=== PATIENT | male | born 1980 ===

== ENCOUNTER 2017-04-07 05:31 | Emergency (ER) | payer OTHER ==
[2017-04-07 05:33] VITALS: BMI 26.5
[2017-04-07 05:48] VITALS: BP 138/88; PULSE 89; RESP 16; TEMP 98.7; O2SAT 99
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
--- NOTE | 2017-04-07 06:50 | CT ---
EXAM: CT Head Without Intravenous Contrast EXAM DATE/TIME: 04/07/2017 5:53 AM CLINICAL HISTORY: 36 years old, male; Injury or trauma; Fall; Additional info: Head injury TECHNIQUE: Axial computed tomography images of the head/brain without intravenous contrast. All CT scans at this facility use one or more dose reduction techniques, viz.: automated exposure control; ma/kV adjustment per patient size (including targeted exams where dose is matched to indication; i.e. head); or iterative reconstruction technique. Coronal and sagittal reformatted images were created and reviewed. COMPARISON: No relevant prior studies available. FINDINGS: Brain: Mild cerebellar and cerebral atrophy. No hemorrhage. No significant white matter disease. No edema. Ventricles: Unremarkable. No ventriculomegaly. Bones/joints: Unremarkable. No acute fracture. Soft tissues: Unremarkable. Sinuses: Minimal mucosal thickening of ethmoid sinus. Mastoid air cells: Unremarkable as visualized. No mastoid effusion. Orbits: Right scleral banding. IMPRESSION: No acute cerebral hemorrhage or edema.
--- NOTE | 2017-04-07 06:55 | CT ---
EXAM: CT Maxillofacial Without Intravenous Contrast EXAM DATE/TIME: 04/07/2017 5:53 AM CLINICAL HISTORY: 36 years old, male; Injury or trauma; Fall; Initial encounter; Blunt trauma (contusions or hematomas); Nose; Additional info: Facial trauma TECHNIQUE: Axial computed tomography images of the face without intravenous contrast. All CT scans at this facility use one or more dose reduction techniques, viz.: automated exposure control; ma/kV adjustment per patient size (including targeted exams where dose is matched to indication; i.e. head); or iterative reconstruction technique. Coronal and sagittal reformatted images were created and reviewed. COMPARISON: No relevant prior studies available. FINDINGS: Bones/joints: Nondisplaced comminuted fractures left nasal bone. Nondisplaced right anterior nasal bone fracture. Fracture inferior nasal spine. Soft tissues: Soft tissue swelling left jaw. Orbits: Right scleral banding. Sinuses: Mucosal thickening right greater than left maxillary sinuses. Bilateral sinonasal antral windows. Minimal mucosal thickening of ethmoid sinus. No air-fluid levels. IMPRESSION: Fractures nasal bones and inferior nasal spine.
== END 2017-04-07 07:10 | disposition home or self-care (01) ==
LOC: H.ER 05:31
DX: S02.2XXA Fracture of nasal bones, initial encounter for closed fracture (principal); S06.9X0A Unspecified intracranial injury without loss of consciousness, initial encounter; Y04.2XXA Assault by strike against or bumped into by another person, initial encounter

== ENCOUNTER 2018-02-25 23:50 | Emergency (ER) | payer OTHER, SELFPAY ==
[2018-02-25 23:50] VITALS: BMI 26.5
[2018-02-25 23:56] VITALS: RESP 16; O2SAT 99
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
[2018-02-26 06:09] VITALS: BP 135/80; PULSE 88; TEMP 98.3
== END 2018-02-26 05:20 | disposition home or self-care (01) ==
LOC: H.ER 23:50
DX: F10.129 Alcohol abuse with intoxication, unspecified (principal); F32.9 Major depressive disorder, single episode, unspecified
CPT/HCPCS: 82948; 99283; G0480

== ENCOUNTER 2018-03-16 16:36 | Emergency (ER) | payer SELFPAY ==
[2018-03-16 16:36] VITALS: BMI 26.5
[2018-03-16 16:48] VITALS: RESP 18
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
[2018-03-16 21:34] VITALS: BP 125/72; PULSE 85; TEMP 98.2; O2SAT 100
== END 2018-03-16 21:47 | disposition home or self-care (01) ==
LOC: H.ER 16:36
DX: F10.120 Alcohol abuse with intoxication, uncomplicated (principal); Z86.59 Personal history of other mental and behavioral disorders; Y90.8 Blood alcohol level of 240 mg/100 ml or more
CPT/HCPCS: 82948; 99284; G0480

== ENCOUNTER 2018-06-06 22:47 | Emergency (ER) | payer SELFPAY ==
[2018-06-06 22:48] VITALS: BMI 26.5
[2018-06-06 22:52] VITALS: RESP 18; O2SAT 99
--- NOTE | 2018-06-07 00:23 | ED PDOC ---
HPI: Psych/Substance Abuse Time Seen by Provider: 06/06/18 23:15 Chief Complaint (Nursing): Alcohol Ingestion Chief Complaint (Provider): etoh History Per: Patient Additional Complaint(s): 37 y/o male brought in by EMS for evaluation of public alcohol intoxication. Patient awake, calm at present; denies acute medical or psychiatric complaints Past Medical History Reviewed: Historical Data, Nursing Documentation, Vital Signs Vital Signs: Last Vital Signs Temp 98.2 F 06/06/18 22:49 Pulse 92 H 06/06/18 22:49 Resp 18 06/06/18 22:49 BP 123/76 06/06/18 22:49 Pulse Ox 99 06/06/18 22:49 - Medical History PMH: Depression, Seizures (alcohol withdrawal) Denies: HIV, Chronic Kidney Disease - Family History Family History: States: Unknown Family Hx - Immunization History Hx Tetanus Toxoid Vaccination: No Hx Influenza Vaccination: No Hx Pneumococcal Vaccination: No - Home Medications Home Medications: Ambulatory Orders Medication Instructions Recorded Thiamine [Vitamin B1 Tab] 100 mg PO BID #60 tab 10/19/17 Zinc [Zinc Sulfate 220 mg Cap] 220 mg PO DAILY #30 cap 10/19/17 - Allergies Allergies/Adverse Reactions: Allergies Allergy/AdvReac Type Severity Reaction Status Date / Time No Known Allergies Allergy Verified 04/30/18 23:25 Review of Systems ROS Statement: Except As Marked, All Systems Reviewed And Found Negative Physical Exam - Reviewed Nursing Documentation Reviewed: Yes Vital Signs Reviewed: Yes - Physical Exam Appears: Positive for: Well, Non-toxic, No Acute Distress Head Exam: Positive for: ATRAUMATIC, NORMAL INSPECTION, NORMOCEPHALIC Skin: Positive for: Normal Color Eye Exam: Positive for: Normal appearance ENT: Positive for: Normal ENT Inspection Cardiovascular/Chest: Positive for: Regular Rate, Rhythm Respiratory: Positive for: Normal Breath Sounds Gastrointestinal/Abdominal: Positive for: Normal Exam Back: Positive for: Normal Inspection Extremity: Positive for: Normal ROM Neurologic/Psych: Positive for: Alert, Oriented (x3) - ECG O2 Sat by Pulse Oximetry: 99 - Progress ED Course And Treament: -accucheck -serum alcohol 2:00 Patient sleeping; no distress 3:30 Patient sleeping; no distress 5:00 Patient sleeping; no distress 6:00 Patient awake, alert, oriented x3. Ambulating steady gait Stable for discharge Disposition - Clinical Impression Clinical Impression: Alcohol abuse with intoxication - Patient ED Disposition Is Patient to be Admitted: No Counseled Patient/Family Regarding: Studies Performed, Diagnosis, Need For Followup - Disposition Disposition: Routine/Home Disposition Time: 06:00 Condition: IMPROVED Instructions: Alcohol Abuse and Alcoholism (DC)
[2018-06-07 06:42] VITALS: BP 128/78; PULSE 90; TEMP 98.4
== END 2018-06-07 06:41 | disposition home or self-care (01) ==
LOC: H.ER 22:47
DX: F10.129 Alcohol abuse with intoxication, unspecified (principal); F32.9 Major depressive disorder, single episode, unspecified
CPT/HCPCS: 82948; 99282; G0480

== ENCOUNTER 2018-07-19 05:23 | Emergency (ER) | payer SELFPAY ==
[2018-07-19 05:23] VITALS: BMI 26.5
[2018-07-19 05:36] VITALS: BP 116/83; PULSE 81; RESP 17; TEMP 98.2; O2SAT 99
--- NOTE | 2018-07-19 06:17 | ED PDOC ---
HPI: Psych/Substance Abuse Time Seen by Provider: 07/19/18 05:48 Chief Complaint (Nursing): Alcohol Ingestion Chief Complaint (Provider): Alcohol Ingestion History Per: Patient, Chef French (bmet Keny Mosher, certified soil engineer, used to translate) Modifying Factor(s): Alcohol Additional Complaint(s): 37 y/o male was brought in by EMS for public intoxication. Patient admits to drinking tonight; denies drugs or any injuries. Patient is awake, alert and oriented x3. No medical complaints. Past Medical History Reviewed: Historical Data, Nursing Documentation, Vital Signs Vital Signs: Last Vital Signs Temp 98.2 F 07/19/18 05:32 Pulse 81 07/19/18 05:32 Resp 17 07/19/18 05:32 BP 116/83 07/19/18 05:32 Pulse Ox 99 07/19/18 05:32 - Medical History PMH: Depression, Seizures (alcohol withdrawal) Denies: HIV, Chronic Kidney Disease - Family History Family History: States: Unknown Family Hx - Immunization History Hx Tetanus Toxoid Vaccination: No Hx Influenza Vaccination: No Hx Pneumococcal Vaccination: No - Home Medications Home Medications: Ambulatory Orders Medication Instructions Recorded Thiamine [Vitamin B1 Tab] 100 mg PO BID #60 tab 10/19/17 Zinc [Zinc Sulfate 220 mg Cap] 220 mg PO DAILY #30 cap 10/19/17 - Allergies Allergies/Adverse Reactions: Allergies Allergy/AdvReac Type Severity Reaction Status Date / Time No Known Allergies Allergy Verified 04/30/18 23:25 Review of Systems ROS Statement: Except As Marked, All Systems Reviewed And Found Negative Psych: Positive for: Other (Intoxicated) Physical Exam - Reviewed Nursing Documentation Reviewed: Yes Vital Signs Reviewed: Yes - Physical Exam Appears: Positive for: Well, Non-toxic, No Acute Distress Head Exam: Positive for: ATRAUMATIC, NORMOCEPHALIC Skin: Positive for: Normal Color, Warm, DRY Eye Exam: Positive for: EOMI, Normal appearance, PERRL Neck: Positive for: Normal, Painless ROM Cardiovascular/Chest: Positive for: Regular Rate, Rhythm. Negative for: Murmur Respiratory: Positive for: Normal Breath Sounds. Negative for: Respiratory Distress Gastrointestinal/Abdominal: Positive for: Normal Exam, Soft. Negative for: Tenderness Extremity: Positive for: Normal ROM. Negative for: Pedal Edema, Deformity Neurologic/Psych: Positive for: Alert, Oriented, Mood/Affect (Mildy intoxicated), Gait (steady). Negative for: Motor/Sensory Deficits - ECG O2 Sat by Pulse Oximetry: 99 (RA) Pulse Ox Interpretation: Normal Medical Decision Making Medical Decision Making: Time: 05:48 Initial Impression: 37 y/o male is mildly intoxicated. Patient is sober enough to make clinical decisions for himself. Will discharge home. Initial Plan: Scribe Attestation: Documented by Deondre Calles acting as a scribe for Sterling Mendoza MD. Provider Scribe Attestation: All medical record entries made by the Scribe were at my direction and personally dictated by me. I have reviewed the chart and agree that the record accurately reflects my personal performance of the history, physical exam, medical decision making, and the department course for this patient. I have also personally directed, reviewed, and agree with the discharge instructions and disposition. Disposition - Clinical Impression Clinical Impression: Alcohol abuse with intoxication - Patient ED Disposition Is Patient to be Admitted: No - Disposition Referrals: Alcoholics Anonymous [Outside] Disposition: Routine/Home Disposition Time: 06:15 Condition: STABLE Additional Instructions: ARMIDA THOMAS, thank you for letting us take care of you today. Your provider was Sterling Mendoza MD and you were treated for ETOH. The emergency medical care you received today was directed at your acute symptoms. If you were prescribed any medication, please fill it and take as directed. It may take several days for your symptoms to resolve. Return to the Emergency Department if your symptoms worsen, do not improve, or if you have any other problems. Please contact your doctor or call one of the physicians/clinics you have been referred to that are listed on the Patient Visit Information form that is included in your discharge packet. Bring any paperwork you were given at discharge with you along with any medications you are taking to your follow up visit. Our treatment cannot replace ongoing medical care by a primary care provider outside of the emergency department. Thank you for allowing the [facility] team to be part of your care today. Instructions: Alcohol Use - When Is Drinking a Problem? Forms: [employer] (Yoruba) Print Language: UGANDAN
== END 2018-07-19 07:04 | disposition home or self-care (01) ==
LOC: H.ER 05:23
DX: F10.129 Alcohol abuse with intoxication, unspecified (principal); F32.9 Major depressive disorder, single episode, unspecified

== ENCOUNTER 2018-07-30 14:25 | Emergency (ER) | payer SELFPAY ==
[2018-07-30 14:25] VITALS: BMI 26.5
[2018-07-30 14:52] VITALS: RESP 18
[2018-07-30] MEDS ORDERED: Alum-Mag Hydrox-Simethicone Susp (30 mL) PO STA (15:14)
[2018-07-30] MEDS ORDERED: Alum-Mag Hydrox-Simethicone Susp (30 mL) ONE (15:22)
--- NOTE | 2018-07-30 15:37 | ED PDOC ---
HPI: Abdomen Time Seen by Provider: 07/30/18 15:02 Chief Complaint (Nursing): Abdominal Pain Chief Complaint (Provider): Abdominal Pain History Per: Patient History/Exam Limitations: no limitations Onset/Duration Of Symptoms: Hrs Current Symptoms Are (Timing): Still Present Associated Symptoms: Nausea, Chest Pain. denies: Vomiting Additional Complaint(s): 37 year old homeless male with a history of multiple visits for alcohol intoxication and seizures who is presenting to the ED for evaluation of chest pain that he has had for a long time. Patient also complains of abdominal pain which he attributes to alcohol abuse. He reports that the chest pain radiates to shoulder and arm. Patient states that he also has nausea but denies any vomiting and adds that he is unsure if he has had a seizure recently. History id unreliable secondary to intoxication. PMD: none provided Past Medical History Reviewed: Historical Data, Nursing Documentation, Vital Signs Vital Signs: Last Vital Signs Temp 97 F L 07/30/18 14:45 Pulse 89 07/30/18 14:45 Resp 18 07/30/18 14:45 BP 145/90 07/30/18 14:45 Pulse Ox 99 07/30/18 14:45 - Medical History PMH: Depression, Seizures (alcohol withdrawal) Denies: HIV, Chronic Kidney Disease - Surgical History Other surgeries: eye surgery - Family History Family History: States: Unknown Family Hx - Social History Current smoker - smoking cessation education provided: No Alcohol: > 2 Drinks/Day Drugs: Denies - Immunization History Hx Tetanus Toxoid Vaccination: No Hx Influenza Vaccination: No Hx Pneumococcal Vaccination: No - Home Medications Home Medications: Ambulatory Orders Medication Instructions Recorded RX: Thiamine [Vitamin B1 Tab] 100 mg PO BID #60 tab 10/19/17 RX: Zinc [Zinc Sulfate 220 mg Cap] 220 mg PO DAILY #30 cap 10/19/17 - Allergies Allergies/Adverse Reactions: Allergies Allergy/AdvReac Type Severity Reaction Status Date / Time No Known Allergies Allergy Verified 07/30/18 14:43 Review of Systems ROS Statement: Except As Marked, All Systems Reviewed And Found Negative Cardiovascular: Positive for: Chest Pain Gastrointestinal: Positive for: Nausea, Abdominal Pain. Negative for: Vomiting Physical Exam - Reviewed Nursing Documentation Reviewed: Yes Vital Signs Reviewed: Yes - Physical Exam Appears: Positive for: Non-toxic, No Acute Distress (intoxicated aoppearing, unkempt and disheveled) Head Exam: Positive for: ATRAUMATIC, NORMOCEPHALIC Skin: Positive for: Warm, Dry Eye Exam: Positive for: Nystagmus, Conjunctival injection ENT: Negative for: Pharyngeal Erythema, Tonsillar Exudate Neck: Positive for: Painless ROM, Supple Cardiovascular/Chest: Positive for: Regular Rate, Rhythm. Negative for: Murmur Respiratory: Positive for: Normal Breath Sounds. Negative for: Respiratory Distress Gastrointestinal/Abdominal: Positive for: Soft, Tenderness (minimal tenderness to epigastric region). Negative for: Mass, Distended, Guarding, Rebound Back: Positive for: Normal Inspection. Negative for: Decreased ROM Extremity: Positive for: Normal ROM. Negative for: Deformity Lymphatic: Negative for: Adenopathy Neurologic/Psych: Positive for: Oriented (x3), Other (sleepy, easily arouseable). Negative for: Motor/Sensory Deficits - Laboratory Results Result Diagrams: 07/30/18 15:40 07/30/18 15:40 - ECG O2 Sat by Pulse Oximetry: 99 (RA) Pulse Ox Interpretation: Normal Medical Decision Making Medical Decision Making: Time: 15:17 Impression: Alcohol Intoxication Plan: --EKG --Alcohol Serum --CMP --Drug Screen --Lipase --Magnesium --Phosphorous --Troponin --ED urine dipstick --CBC --Coags --Dextrose IV --Lidocaine 10 ml PO --Maalox 30 ml PO --Thiamine 100 mg PO Markedly elevated BAL with deranged LFTs. Need observation for sobriety 2300 Had meal in ER and tolerating PO. Steady gait with no signs of withdrawal. Stable for discharge. Detox resources given. Scribe Attestation: Documented by Elsa Miner, acting as a scribe for Piedad Mcgill MD. Provider Scribe Attestation: All medical record entries made by the Scribe were at my direction and personally dictated by me. I have reviewed the chart and agree that the record accurately reflects my personal performance of the history, physical exam, medical decision making, and the department course for this patient. I have also personally directed, reviewed, and agree with the discharge instructions and disposition. Disposition - Clinical Impression Clinical Impression: Alcohol abuse - Disposition Disposition: Routine/Home Disposition Time: 23:00 Condition: IMPROVED Instructions: Alcohol Intoxication (ED), Abuse of Alcohol (ED), Alcohol Dependence (ED) Print Language: LITHUANIAN
[2018-07-30 16:18] LABS: BASO % 1.1 % (0.0-2.0); EOS # 0.4 K/uL (0.0-0.7); EOS % 11.1 % (0.0-4.0); HEMOGLOBIN 11.7 g/dL (12.0-18.0); LYMPH # 1.3 K/uL (1.0-4.3); MEAN CORPUSCULAR HEMOGLOBIN 26.5 pg (27.0-31.0); MEAN CORPUSCULAR HGB CONC 32.5 g/dL (33.0-37.0); MEAN PLATELET VOLUME 8.4 fl (7.2-11.7); MONO # 0.3 K/uL (0.0-0.8); NEUT # 1.3 K/uL (1.8-7.0); NEUT % 39.8 % (50.0-75.0); NRBC % 0.1 % (0.0-0.0); RBC 4.41 Mil/uL (4.40-5.90); RED CELL DISTRIBUTION WIDTH 18.9 % (11.5-14.5)
[2018-07-30 16:24] LABS: INR 1.3; MEAN CELL VOLUME 81.5 fl (80.0-94.0); PROTHROMBIN TIME 14.2 Seconds (9.8-13.1); WHITE BLOOD COUNT 3.2 K/uL (4.8-10.8)
[2018-07-30 16:37] LABS: PARTIAL THROMBOPLASTIN TIME 37.3 Seconds (25.6-37.1)
[2018-07-30 16:39] LABS: BARBITURATES, UR NEGATIVE (NEGATIVE); BENZODIAZEPINES, UR NEGATIVE (NEGATIVE); OPIATES, UR NEGATIVE (NEGATIVE); PHENCYCLIDINE, UR NEGATIVE (NEGATIVE)
[2018-07-30 16:52] LABS: ALT/SGPT 31 U/L (21-72); AST/SGOT 55 U/L (17-59); BLOOD UREA NITROGEN 6 mg/dl (9-20); CALCIUM 9.1 mg/dL (8.4-10.2); GFR NON-AFRICAN AMERICAN > 60; LIPASE 158 U/L (23-300)
--- NOTE | 2018-07-30 19:06 | CARD ---
APPROVED REPORT Date of service: 07/30/2018 EKG Measurement Heart [id number] <Conclusion> Sinus rhythm with premature atrial complexes in a pattern of bigeminy Otherwise normal ECG
[2018-07-30 20:28] VITALS: TEMP 98
[2018-07-31 00:47] VITALS: BP 122/70; PULSE 78
[2018-07-31 21:09] VITALS: O2SAT 99
== END 2018-07-31 00:45 | disposition home or self-care (01) ==
LOC: H.ER 14:25
DX: F10.129 Alcohol abuse with intoxication, unspecified (principal); F32.9 Major depressive disorder, single episode, unspecified; I49.1 Atrial premature depolarization
CPT/HCPCS: 80053; 83690; 83735; 84100; 84484; 85025; 85610; 85730; 93005; 99284; G0480; J7042

== ENCOUNTER 2018-08-20 22:45 | Emergency (ER) | payer SELFPAY ==
[2018-08-20 22:47] VITALS: PULSE 97; RESP 16; TEMP 98.1; O2SAT 98
[2018-08-20 22:48] VITALS: BMI 23.3
[2018-08-20 22:53] VITALS: BP 144/97
--- NOTE | 2018-08-20 23:22 | ED PDOC ---
HPI: Psych/Substance Abuse Time Seen by Provider: 08/20/18 22:57 Chief Complaint (Nursing): Alcohol Ingestion History Per: Patient Onset/Duration Of Symptoms: Hrs Additional Complaint(s): Patient was sent to the ER by police after shoplifiting. States he drank alcohol, denies drugs. Denies suicidal or homicidal ideation. Denies any other complaints. Past Medical History Reviewed: Historical Data, Nursing Documentation, Vital Signs Vital Signs: Last Vital Signs Temp 98.1 F 08/20/18 22:46 Pulse 97 H 08/20/18 22:46 Resp 16 08/20/18 22:46 BP 144/97 H 08/20/18 22:46 Pulse Ox 98 08/20/18 22:46 - Medical History PMH: Depression, Seizures (alcohol withdrawal) Denies: HIV, Chronic Kidney Disease - Family History Family History: States: Unknown Family Hx - Immunization History Hx Tetanus Toxoid Vaccination: No Hx Influenza Vaccination: No Hx Pneumococcal Vaccination: No - Home Medications Home Medications: Ambulatory Orders Medication Instructions Recorded Thiamine [Vitamin B1 Tab] 100 mg PO BID #60 tab 10/19/17 Zinc [Zinc Sulfate 220 mg Cap] 220 mg PO DAILY #30 cap 10/19/17 - Allergies Allergies/Adverse Reactions: Allergies Allergy/AdvReac Type Severity Reaction Status Date / Time No Known Allergies Allergy Verified 07/30/18 14:43 Review of Systems ROS Statement: Except As Marked, All Systems Reviewed And Found Negative Physical Exam - Reviewed Nursing Documentation Reviewed: Yes Vital Signs Reviewed: Yes - Physical Exam Appears: Positive for: Well, Non-toxic, No Acute Distress Head Exam: Positive for: ATRAUMATIC, NORMAL INSPECTION, NORMOCEPHALIC Skin: Positive for: Normal Color, Warm, DRY Eye Exam: Positive for: EOMI, Normal appearance, PERRL ENT: Positive for: Normal ENT Inspection Neck: Positive for: Normal, Painless ROM Cardiovascular/Chest: Positive for: Regular Rate, Rhythm Respiratory: Positive for: CNT, Normal Breath Sounds Gastrointestinal/Abdominal: Positive for: Normal Exam, Soft Back: Positive for: Normal Inspection Extremity: Positive for: Normal ROM Neurologic/Psych: Positive for: Alert, plan rep II-XII, Oriented, Gait (Normal). Negative for: Motor/Sensory Deficits - ECG O2 Sat by Pulse Oximetry: 98 Pulse Ox Interpretation: Normal Medical Decision Making Medical Decision Making: Patient with mild alcohol intoxication Awake, alert, able to make decisions for himself, wishes to leave ER No acute intervention necessary Stable vitals, well appearing Disposition - Clinical Impression Clinical Impression: Alcohol abuse with intoxication - Patient ED Disposition Is Patient to be Admitted: No - Disposition Referrals: Alcoholics Anonymous [Outside] Disposition: Routine/Home Disposition Time: 23:22 Condition: GOOD Instructions: Alcohol Use - When Is Drinking a Problem? Print Language: THAI
== END 2018-08-20 23:05 | disposition home or self-care (01) ==
LOC: H.ER 22:45
DX: F10.129 Alcohol abuse with intoxication, unspecified (principal); F32.9 Major depressive disorder, single episode, unspecified

== ENCOUNTER 2018-10-20 03:59 | Emergency (ER) | payer OTHER ==
[2018-10-20 03:59] VITALS: BMI 23.3
[2018-10-20 04:05] VITALS: PULSE 98; RESP 17; TEMP 98.8; O2SAT 98
[2018-10-20 04:08] VITALS: BP 123/69
--- NOTE | 2018-10-20 04:25 | ED PDOC ---
HPI: Psych/Substance Abuse Time Seen by Provider: 10/20/18 04:00 Chief Complaint (Nursing): Alcohol Ingestion Chief Complaint (Provider): Alcohol Ingestion History Per: Patient History/Exam Limitations: no limitations Current Symptoms Are (Timing): Still Present Suicide/Self Injury Attempted (Context): None Modifying Factor(s): Alcohol Additional Complaint(s): 38 year old male with a history of chronic alcoholism presents to the ED via EMS due to public intoxication. Patient was found intoxicated outside [facility]. He states that he was waiting for his boyfriend to pick him up. Denies medical complaints, homicidal and suicidal ideation. PMD: none provided Past Medical History Reviewed: Historical Data, Nursing Documentation, Vital Signs Vital Signs: Last Vital Signs Temp 98.8 F 10/20/18 04:03 Pulse 98 H 10/20/18 04:03 Resp 17 10/20/18 04:03 BP 123/69 10/20/18 04:03 Pulse Ox 98 10/20/18 04:03 - Medical History PMH: Depression, Seizures (alcohol withdrawal) Denies: HIV, Chronic Kidney Disease - Surgical History Surgical History: No Surg Hx - Family History Family History: States: Unknown Family Hx - Social History Alcohol: > 2 Drinks/Day - Immunization History Hx Tetanus Toxoid Vaccination: No Hx Influenza Vaccination: No Hx Pneumococcal Vaccination: No - Home Medications Home Medications: Ambulatory Orders Medication Instructions Recorded Thiamine [Vitamin B1 Tab] 100 mg PO BID #60 tab 10/19/17 Zinc [Zinc Sulfate 220 mg Cap] 220 mg PO DAILY #30 cap 10/19/17 - Allergies Allergies/Adverse Reactions: Allergies Allergy/AdvReac Type Severity Reaction Status Date / Time No Known Allergies Allergy Verified 07/30/18 14:43 Review of Systems ROS Statement: Except As Marked, All Systems Reviewed And Found Negative Physical Exam - Reviewed Nursing Documentation Reviewed: Yes Vital Signs Reviewed: Yes - Physical Exam Appears: Positive for: Non-toxic, No Acute Distress Head Exam: Positive for: ATRAUMATIC, NORMAL INSPECTION, NORMOCEPHALIC Skin: Positive for: Normal Color, Warm, Dry Eye Exam: Positive for: EOMI, Normal appearance, PERRL Neck: Positive for: Normal, Painless ROM, Supple Cardiovascular/Chest: Positive for: Regular Rate, Rhythm. Negative for: Murmur Respiratory: Positive for: Normal Breath Sounds. Negative for: Respiratory Distress Gastrointestinal/Abdominal: Positive for: Normal Exam, Soft. Negative for: Tenderness Back: Positive for: Normal Inspection. Negative for: L CVA Tenderness, R CVA Tenderness Extremity: Positive for: Normal ROM (x 4) Neurological/Psych: Positive for: Awake, Alert, Normal Tone, Oriented (x 3), Gait (stable). Negative for: Motor/Sensory Deficits - ECG O2 Sat by Pulse Oximetry: 98 (RA) Pulse Ox Interpretation: Normal Medical Decision Making Medical Decision Makin:00 A&P: mild alcohol intoxication Patient is alert, oriented, ambulating with steady gait. He requires no treatment in the ED. Return precautions provided. Scribe Attestation: Documented by Perla Ferreira, acting as a scribe Saad Mendoza MD Provider Scribe Attestation: All medical record entries made by the Scribe were at my direction and personally dictated by me. I have reviewed the chart and agree that the record accurately reflects my personal performance of the history, physical exam, medical decision making, and the department course for this patient. I have also personally directed, reviewed, and agree with the discharge instructions and disposition. Disposition - Clinical Impression Clinical Impression: Alcohol use - Patient ED Disposition Is Patient to be Admitted: No Counseled Patient/Family Regarding: Diagnosis - Disposition Referrals: Alcoholics Anonymous [Outside] Disposition: Routine/Home Disposition Time: 04:53 Condition: GOOD Instructions: Alcohol Use - When Is Drinking a Problem? Forms: [employer]ago (Macedonian) Print Language: MAORI
== END 2018-10-20 04:31 | disposition home or self-care (01) ==
LOC: H.ER 03:59
DX: F10.129 Alcohol abuse with intoxication, unspecified (principal); F32.9 Major depressive disorder, single episode, unspecified